=== PATIENT | female | born 1935 | race African-American/Black ===

== ENCOUNTER 2018-05-12 09:48 | Emergency (ER) | payer OTHER, MEDICAID ==
[~2018-05-12] VITALS: Ht 170.2 cm; Wt 92.1 kg
[~2018-05-12 09:48] MED LIST: AMLO5TAB1 PO; ASPI81CT89 PO; CLON0.3T23 PO; FOLI1TAB19 PO; LABE200T25 PO; SULF500T6 PO
[2018-05-12 09:51] VITALS: BP 160/88
--- NOTE | 2018-05-12 10:10 | NUR ---
PT AMBULATED WITH WALKER ASSISTANCE TO ER BED 6.
--- NOTE | 2018-05-12 10:12 | NUR ---
82/F BIB [facility] WITH C/O RIGHT SHOULDER PAIN S/P FALL x 2 MONTHS. PT STATES SHE FELL AND LANDED ON HER RT SIDE. DENIES LOC/KO. HX: HTN. DENIES N/V/D; SKIN IS PINK/WARM/DRY; AAOX4 , AMB WITH WALKER; LUNGS CLEAR BL. PT DENIES ANY FEVER, CP, SOB, OR COUGH AT THIS TIME; PATIENT STATES PAIN OF 5/10 AT THIS TIME. PATIENT POSITIONED FOR COMFORT; HOB ELEVATED; BEDRAILS UP X2; BED DOWN. ER MD MADE AWARE OF PT STATUS.
--- NOTE | 2018-05-12 10:15 | NUR ---
X RAY AT BEDSIDE.
--- NOTE | 2018-05-12 10:27 | NUR ---
Patient being evaluated by DR PACE at bedside.
--- NOTE | 2018-05-12 11:17 | NUR ---
PT TAKEN TO X RAY
[2018-05-12 12:02] LABS: BASOPHILS # (AUTO) 0.1 K/uL (0.00-0.22); BASOPHILS % (AUTO) 1.1 % (0.0-2.0); EOSINOPHILS # (AUTO) 0.2 K/uL (0-0.4); EOSINOPHILS % (AUTO) 3.3 % (0.0-4.0); HEMATOCRIT 39.8 % (36-48); LYMPHOCYTES # (AUTO) 2.1 K/uL (2.5-16.5); MEAN CORPUSCULAR HEMOGLOBIN 29 pg (27-31); MEAN CORPUSCULAR HGB CONC 33 g/dL (33-37); MEAN CORPUSCULAR VOLUME 89.4 fL (80-94); MONOCYTES # (AUTO) 0.6 K/uL (0.8-1.0); MONOCYTES % (AUTO) 8.9 % (1.7-9.3); NEUTROPHILS # (AUTO) 3.9 K/uL (1.8-7.7); NEUTROPHILS % (AUTO) 56.7 % (42.2-75.2); PLATELET COUNT (AUTO) 167 K/uL (140-450); RED BLOOD CELL COUNT(AUTO) 4.46 MIL/uL (4.20-5.40); RED CELL DISTRIBUTION WIDTH 14.6 % (11.6-13.7); WHITE BLOOD COUNT (AUTO) 6.8 K/uL (4.8-10.8)
[2018-05-12 12:02] LABS: APPEARANCE,URINE CLEAR (CLEAR); BILIRUBIN,URINE NEGATIVE (NEGATIVE); BLOOD, URINE TRACE-I (NEGATIVE); COLOR,URINE YELLOW (YELLOW); LEUKOCYTE ESTERASE ,URINE NEGATIVE (NEGATIVE); NITRITE, URINE NEGATIVE (NEGATIVE); PH,URINE 6.5 (5.0-9.0); UGLUCOSE NEGATIVE (NEGATIVE)
[2018-05-12 12:05] LABS: RBC,URINE 0-5 (RARE) /HPF (0-5); WBC,URINE 0-5 (RARE) /HPF (0-5)
[2018-05-12 12:20] LABS: PROTHROMBIN TIME 9.9 secs (10.8-13.4)
[2018-05-12 13:03] LABS: ALBUMIN 4.1 g/dL (3.4-5.0); ANION GAP 9.6 (8-16); ASPARTATE AMINOTRANSFERASE 14 U/L (15-37); CARBON DIOXIDE 29.9 mmol/L (21-32); CHLORIDE 108 mmol/L (98-107); CREATININE 1.2 mg/dL (0.6-1.3); GLUCOSE 94 mg/dL (74-106); POTASSIUM 4.5 mmol/L (3.5-5.1); SODIUM SERUM 143 mmol/L (136-145); TOTAL BILIRUBIN 0.6 mg/dL (0.0-1.0); UREA NITROGEN, BLOOD 16 mg/dL (7-18)
--- NOTE | 2018-05-12 13:24 | NUR ---
PT DENIES ANY PAIN & STATED " I WANT TO GO HOME". Addendum: 05/12/18 at 1325 by MED1 BP 171/[address] PACE.
--- NOTE | 2018-05-12 13:39 | NUR ---
Sebastien huang in [facility] - 05/12/18 at 1340 by MED1 Patient being evaluated by DR PACE at bedside.
--- NOTE | 2018-05-12 13:40 | NUR ---
Patient being reevaluated by DR PACE at bedside.
--- NOTE | 2018-05-12 13:43 | NUR ---
[employer] Manager Note: Per Shavonne from [facility] patient is in agreement with home health services from [facility], phone number , fax . Shavonne verified with patient, her phone number listed on face sheet and CECY Horn verified her address [address] [place] [address]. [address] [place] [phone]. I faxed inquiry to [facility]. Per Blayne from [facility], they will send a nurse to patient's home either today or tomorrow, Shavonne made aware home health services for patient have been arranged.
[2018-05-12 14:06] VITALS: BP 171/71
--- NOTE | 2018-05-12 14:06 | NUR ---
Patient discharged with BP 171/71 DENIES ANY PAIN AT THIS TIME. Written and verbal after care instructions given and explained. Patient verbalized understanding. AMB WITH WALKER All questions addressed prior to discharge. Advised to follow up with PMD.
== END 2018-05-12 14:06 | disposition home or self-care (01) ==
LOC: MED 09:48
DX: M17.11 Unilateral primary osteoarthritis, right knee (principal); R53.1 Weakness; R79.89 Other specified abnormal findings of blood chemistry; E11.9 Type 2 diabetes mellitus without complications; I10 Essential (primary) hypertension; R94.31 Abnormal electrocardiogram [ECG] [EKG]; Z86.73 Personal history of transient ischemic attack (TIA), and cerebral infarction without residual deficits; Z79.82 Long term (current) use of aspirin
CPT/HCPCS: 36415; 70450; 71045; 73030; 73502; 80053; 81001; 84484; 85025; 85610; 85730; 93005; 99285; Q0092

== ENCOUNTER 2018-12-26 09:50 | Emergency (ER) | payer OTHER, MEDICAID ==
[~2018-12-26] VITALS: Ht 170.2 cm; Wt 93.4 kg
[~2018-12-26 09:50] MED LIST changes: +ASPI-1821 PO; -ASPI81CT89 PO
[2018-12-26 10:01] VITALS: BP 152/87
--- NOTE | 2018-12-26 10:20 | NUR ---
C/O R ELBOW PAIN X1 DAY, DENIES INJURY/TRAUMA. PT STATES SHE "WOKE UP AND IT WAS HURTING 10/10 SHARP PAIN". NO OBVIOUS DEFORMITY NOTED, NO SWELLING/BRUISING/REDNESS NOTED. DENIES N/V/D; SKIN IS WARM/DRY; AAOX4 WITH UNSTEADY GAIT, USES WALKER; LUNGS CLEAR BL; HR EVEN AND REGULAR; PT DENIES ANY FEVER, CP, SOB, OR COUGH AT THIS TIME; PATIENT STATES PAIN OF 10/10 AT THIS TIME; VSS; PATIENT POSITIONED FOR COMFORT; HOB ELEVATED; BEDRAILS UP X1; BED DOWN, CAREGIVER AT BEDSIDE. ER MD MADE AWARE OF PT STATUS.
--- NOTE | 2018-12-26 12:08 | NUR ---
ERMD AT BEDSIDE
[2018-12-26] MEDS ORDERED: DEXAMETHASONE 10 MG/ML VIAL IM ONE (12:25)
[2018-12-26] MEDS ORDERED: KETOROLAC 30 MG/ML VIAL IM ONE (12:25)
--- NOTE | 2018-12-26 12:50 | NUR ---
XRAY AT BEDSIDE
[2018-12-26] MEDS ORDERED: MORPHINE SULFATE 4 MG/ML SYR IM ONE (13:20)
--- NOTE | 2018-12-26 13:56 | NUR ---
PT RESTING IN BED, NO NEW NEEDS AT THIS TIME
--- NOTE | 2018-12-26 14:00 | NUR ---
ATTEMPTED TO CALL CT TWICE, NO ANSWER.
--- NOTE | 2018-12-26 14:07 | NUR ---
CALLED CT AGAIN, NO ANSWER
--- NOTE | 2018-12-26 14:10 | NUR ---
PT LEAVING TO CT
[2018-12-26 15:30] VITALS: BP 137/81
--- NOTE | 2018-12-26 15:30 | NUR ---
Patient discharged with v/s stable. Written and verbal after care instructions given and explained. Patient alert, oriented and verbalized understanding of instructions. Ambulatory with steady gait. All questions addressed prior to discharge. ID band removed. Patient advised to follow up with PMD. Rx of TRAMADOL HYDROCHLORIDE 50MG given. Patient educated on indication of medication including possible reaction and side effects. Opportunity to ask questions provided and answered.
== END 2018-12-26 15:30 | disposition home or self-care (01) ==
LOC: MED 09:50
DX: M19.012 Primary osteoarthritis, left shoulder (principal); M19.022 Primary osteoarthritis, left elbow; M50.122 Cervical disc disorder at C5-C6 level with radiculopathy; M50.123 Cervical disc disorder at C6-C7 level with radiculopathy; I10 Essential (primary) hypertension; Z86.73 Personal history of transient ischemic attack (TIA), and cerebral infarction without residual deficits; Z79.82 Long term (current) use of aspirin; Z79.899 Other long term (current) drug therapy
CPT/HCPCS: 72125; 73060; 96372; 99284; J1100; J1885; J2270; Q0092

== ENCOUNTER 2019-01-14 09:03 | Emergency (ER) | payer OTHER, MEDICAID ==
[~2019-01-14] VITALS: Ht 170.2 cm; Wt 91.8 kg
[2019-01-14 09:11] VITALS: BP 247/104
--- NOTE | 2019-01-14 09:14 | NUR ---
Patient ambulated to bed 2. RN evaluating patient at bedside.
--- NOTE | 2019-01-14 09:32 | NUR ---
C/O LT ARM EDEMA, RT LEG EDEMA & MILD WEAKNESS. NON-PITTING EDEMA PRESENT. +CMS.
--- NOTE | 2019-01-14 10:29 | NUR ---
LAB AT BEDSIDE AND EKG BEING DONE BEDSIDE
[2019-01-14 10:43] LABS: BASOPHILS # (AUTO) 0.1 K/uL (0.00-0.22); BASOPHILS % (AUTO) 1.1 % (0.0-2.0); EOSINOPHILS % (AUTO) 0.5 % (0.0-4.0); HEMATOCRIT 35.1 % (36-48); HEMOGLOBIN 11.5 g/dL (12.0-16.0); LYMPHOCYTES # (AUTO) 0.9 K/uL (2.5-16.5); LYMPHOCYTES % (AUTO) 13.2 % (20.5-51.1); MEAN CORPUSCULAR HEMOGLOBIN 29 pg (27-31); MEAN CORPUSCULAR HGB CONC 33 g/dL (33-37); MEAN CORPUSCULAR VOLUME 88.9 fL (80-94); MONOCYTES # (AUTO) 0.6 K/uL (0.8-1.0); MONOCYTES % (AUTO) 8.5 % (1.7-9.3); NEUTROPHILS # (AUTO) 5.4 K/uL (1.8-7.7); NEUTROPHILS % (AUTO) 76.7 % (42.2-75.2); PLATELET COUNT (AUTO) 172 K/uL (140-450); RED BLOOD CELL COUNT(AUTO) 3.94 MIL/uL (4.20-5.40); RED CELL DISTRIBUTION WIDTH 14.3 % (11.6-13.7)
[2019-01-14] MEDS ORDERED: ENALAPRILAT 2.5 MG/2 ML VIAL IVP ONE ×2 (10:45→12:25)
[2019-01-14 10:56] LABS: PROTHROMBIN TIME 11.1 secs (10.8-13.4)
[2019-01-14 11:22] LABS: CHLORIDE 103 mmol/L (98-107); POTASSIUM 3.6 mmol/L (3.5-5.1); SODIUM SERUM 135 mmol/L (136-145)
[2019-01-14 11:23] LABS: ANION GAP 8.4 (8-16); CARBON DIOXIDE 27.2 mmol/L (21-32); CREATININE 1.4 mg/dL (0.6-1.3); GLUCOSE 134 mg/dL (74-106); TOTAL BILIRUBIN 0.8 mg/dL (0.0-1.0); UREA NITROGEN, BLOOD 22 mg/dL (7-18)
[2019-01-14 11:24] LABS: ALBUMIN 3.1 g/dL (3.4-5.0); ASPARTATE AMINOTRANSFERASE 10 U/L (15-37)
--- NOTE | 2019-01-14 11:24 | NUR ---
Received lab value of Troponin 0.175. Reported to Dr. Pearl.
--- NOTE | 2019-01-14 11:41 | NUR ---
Patient taken to CT scan by
[2019-01-14 11:45] LABS: BILIRUBIN,URINE NEGATIVE (NEGATIVE); BLOOD, URINE 1+ (NEGATIVE); COLOR,URINE YELLOW (YELLOW); LEUKOCYTE ESTERASE ,URINE TRACE (NEGATIVE); NITRITE, URINE NEGATIVE (NEGATIVE); UGLUCOSE NEGATIVE (NEGATIVE)
[2019-01-14 12:08] LABS: APPEARANCE,URINE CLEAR (CLEAR); RBC,URINE 0-5 /HPF (0-5); WBC,URINE 0-5 /HPF (0-5)
[2019-01-14] MEDS ORDERED: ASPIRIN 81 MG TAB.CHEW PO ONE (12:10)
[2019-01-14] MEDS ORDERED: NACL 0.9% 1,000 ML IV SCH (12:14)
[2019-01-14] MEDS ORDERED: ACETAMINOPHEN 325 MG TAB PO PRN (12:15)
[2019-01-14] MEDS ORDERED: MORPHINE SULFATE 2 MG/ML SYR IVP PRN (12:15)
[2019-01-14] MEDS ORDERED: ONDANSETRON 4 MG/2 ML VIAL IM/IVP PRN (12:15)
[2019-01-14] MEDS ORDERED: HYDROcodone/APAP 5/325 MG 1 TAB TAB PO PRN (12:15)
[2019-01-14 12:45] LABS: BARBITURATE, URINE NEGATIVE ng/ml (NEG <=200); BENZODIAZEPINE, URINE NEGATIVE ng/mL (NEG <=200); CANNABINOID, URINE NEGATIVE ng/mL (NEG <=50); COCAINE, URINE NEGATIVE ng/mL (NEG <=300); OPIATE, URINE NEGATIVE ng/mL (NEG <=2000); PHENCYCLIDINE SCREEN,URINE NEGATIVE ng/mL (NEG <=25)
[2019-01-14 12:51] LABS: PHOSPHORUS 2.5 mg/dL (2.5-4.9); THYROID STIMULATING HORMONE 1.17 uIU/mL (0.34-3.74)
--- NOTE | 2019-01-14 13:05 | NUR ---
Patient does not wish to proceed with medication recommended by Dr Pearl (Vasotec). Dr Pearl informed. Patient given information related to possible complications which could occur as a result from refusing medication at this time. Patient verbalizes understanding of risks involved from refusing medication, but pt continues to strongly refused.
[2019-01-14] MEDS ORDERED: NITROGLYCERIN 0.4 MG TAB SL PRN (14:05)
[2019-01-14] MEDS ORDERED: ALBUTEROL SULFATE/IPRATROPIU 3 ML SOL IH PRN (14:05)
[2019-01-14 15:08] VITALS: BP 147/74
--- NOTE | 2019-01-14 15:08 | NUR ---
Patient does not wish to proceed with medical care recommended by Dr Pearl. Patient given information related to possible complications, up to and including , which could occur as a result of leaving hospital at this time. Patient verbalizes understanding of risks involved leaving against medical advice. Patient has signed AMA form.
[2019-01-14] MEDS ORDERED: PIPERACILLIN/TAZOBACTAM 2.25 GM in DEXTROSE 5% 50 ML IV SCH (18:00)
[2019-01-14] MEDS ORDERED: ALBUTEROL SULFATE/IPRATROPIU 3 ML SOL IH SCH (19:00)
[2019-01-14] MEDS ORDERED: METOPROLOL 25 MG TAB PO SCH (21:00)
[2019-01-14] MEDS ORDERED: ATORVASTATIN 20 MG TAB PO SCH (21:00)
[2019-01-14] MEDS ORDERED: DOCUSATE SODIUM 100 MG GELCAP PO SCH (21:00)
[2019-01-15] MEDS ORDERED: LACTOBACILLUS RHAMNOSUS GG 1 EACH CAP PO SCH (09:00)
[2019-01-15] MEDS ORDERED: ASPIRIN 81 MG TAB.CHEW PO SCH (09:00)
[2019-01-15] MEDS ORDERED: LISINOPRIL 5 MG TAB PO SCH (09:00)
== END 2019-01-14 15:08 | disposition left against medical advice (07) ==
LOC: MED 09:03
DX: S80.811A Abrasion, right lower leg, initial encounter (principal); I24.9 Acute ischemic heart disease, unspecified; I16.0 Hypertensive urgency; M54.12 Radiculopathy, cervical region; M19.012 Primary osteoarthritis, left shoulder; M19.022 Primary osteoarthritis, left elbow; M50.30 Other cervical disc degeneration, unspecified cervical region; I10 Essential (primary) hypertension; Z86.73 Personal history of transient ischemic attack (TIA), and cerebral infarction without residual deficits; Z79.82 Long term (current) use of aspirin; Z79.899 Other long term (current) drug therapy; X58.XXXA Exposure to other specified factors, initial encounter; Y93.89 Activity, other specified; Y92.89 Other specified places as the place of occurrence of the external cause; Y99.8 Other external cause status
CPT/HCPCS: 36415; 70450; 71045; 80053; 80305; 81001; 83036; 83735; 83880; 84100; 84443; 84484; 85025; 85610; 85730; 93005; 93971; 96374; 99284; J3490; Q0092

== ENCOUNTER 2022-02-24 17:48 | Emergency (ER) | payer OTHER, MEDICAID ==
[~2022-02-24] VITALS: Ht 170.2 cm; Wt 86.2 kg
--- NOTE | 2022-02-24 17:53 | NUR ---
PT BIBA TO BED 01
[2022-02-24 17:56] VITALS: BP 228/116
[2022-02-24 18:32] LABS: BASOPHILS # (AUTO) 0.1 K/uL (0.00-0.22); BASOPHILS % (AUTO) 1.2 % (0.0-2.0); EOSINOPHILS # (AUTO) 0.4 K/uL (0-0.4); EOSINOPHILS % (AUTO) 6.5 % (0.0-4.0); HEMATOCRIT 40.1 % (36-48); HEMOGLOBIN 13.1 g/dL (12.0-16.0); LYMPHOCYTES # (AUTO) 1.4 K/uL (2.5-16.5); LYMPHOCYTES % (AUTO) 23.4 % (20.5-51.1); MEAN CORPUSCULAR HEMOGLOBIN 29 pg (27-31); MEAN CORPUSCULAR HGB CONC 33 g/dL (33-37); MEAN CORPUSCULAR VOLUME 87.4 fL (80-94); MONOCYTES # (AUTO) 0.5 K/uL (0.8-1.0); MONOCYTES % (AUTO) 8.7 % (1.7-9.3); NEUTROPHILS # (AUTO) 3.7 K/uL (1.8-7.7); NEUTROPHILS % (AUTO) 60.2 % (42.2-75.2); PLATELET COUNT (AUTO) 118 K/uL (140-450); RED BLOOD CELL COUNT(AUTO) 4.59 MIL/uL (4.20-5.40); RED CELL DISTRIBUTION WIDTH 15.3 % (11.6-13.7); WHITE BLOOD COUNT (AUTO) 6.1 K/uL (4.8-10.8)
[2022-02-24 18:49] LABS: ALBUMIN 3.9 g/dL (3.4-5.0); ANION GAP 9.3 (8-16); ASPARTATE AMINOTRANSFERASE 14 U/L (15-37); CARBON DIOXIDE 27.7 mmol/L (21-32); CHLORIDE 105 mmol/L (98-107); CREATININE 1.7 mg/dL (0.6-1.3); GLUCOSE 112 mg/dL (74-106); SODIUM SERUM 138 mmol/L (136-145); TOTAL BILIRUBIN 0.5 mg/dL (0.0-1.0); UREA NITROGEN, BLOOD 21 mg/dL (7-18)
[2022-02-24] MEDS ORDERED: hydrALAZINE 20 MG/ML VIAL IVP ONE (19:25)
== END 2022-02-24 19:47 | disposition left against medical advice (07) ==
LOC: MED 17:48
DX: E11.22 Type 2 diabetes mellitus with diabetic chronic kidney disease (principal); I12.9 Hypertensive chronic kidney disease with stage 1 through stage 4 chronic kidney disease, or unspecified chronic kidney disease; N18.9 Chronic kidney disease, unspecified; I16.1 Hypertensive emergency; I21.4 Non-ST elevation (NSTEMI) myocardial infarction; N17.9 Acute kidney failure, unspecified; I63.9 Cerebral infarction, unspecified; K21.9 Gastro-esophageal reflux disease without esophagitis; Z79.4 Long term (current) use of insulin
CPT/HCPCS: 36415; 71045; 80053; 83880; 84484; 85025; 93005; 99285